=== PATIENT | female | born 1950 | race Caucasian/White ===

== ENCOUNTER 2021-08-26 08:00 | Outpatient (RCR) | payer MEDICAID, SELFPAY | END 2021-08-26 10:03 | disposition home or self-care (01) | LOC: HO.OT 08:00 | PROVIDERS: PCP Internal Medicine; Visit Provider Internal Medicine | DX: I89.0 Lymphedema, not elsewhere classified (principal) | CPT/HCPCS: 97110; 97140; 97166 ==

== ENCOUNTER 2022-09-01 09:00 | Outpatient (RCR) | payer MEDICAID, SELFPAY | END 2022-09-27 15:50 | disposition home or self-care (01) | LOC: HO.OT 09:00 | PROVIDERS: Visit Provider Internal Medicine | DX: I89.0 Lymphedema, not elsewhere classified (principal) | CPT/HCPCS: 97110; 97140 ==

== ENCOUNTER 2024-09-26 15:06 | Outpatient (RCR) | payer MEDICAID, SELFPAY | END 2025-02-17 11:07 | disposition home or self-care (01) | LOC: HO.OT 15:06 | PROVIDERS: PCP Internal Medicine; Visit Provider Internal Medicine | DX: I89.0 Lymphedema, not elsewhere classified (principal) | CPT/HCPCS: 97140; 97165; 97535 ==